=== PATIENT | female | born 1945 | race Caucasian/White ===

== ENCOUNTER 2018-01-12 09:38 | Inpatient (IN) | payer MEDICARE, MEDICAID ==
[~2018-01-12] VITALS: Ht 182.9 cm; Wt 142.7 kg
[2018-01-12] MEDS ORDERED: ALBUTEROL SULF 2.5 MG/0.5ML(0.5%) NEB SOLN NEB ONE (10:00)
[2018-01-12] MEDS ORDERED: IPRATROPIUM BROM 0.5 MG/2.5ML INH SOL NEB ONE (10:00)
[2018-01-12] MEDS ORDERED: methylPREDNISolone SOD SUCC 125 MG/2 ML VL IV ONE (10:00)
[2018-01-12 10:26] LABS: Basophils # (auto) 0 uL; Basophils % (auto) 0.4 % (0.0-2.0); Eosinophils # (auto) 0.2 uL; Eosinophils % (auto) 1.8 % (0.0-7.0); Hematocrit 34.1 % (36.0-46.0); Hemoglobin 10.9 g/dL (12.2-16.2); Lymphocytes # (auto) 2.3 uL; Mean Corpuscular Hemoglobin 28.7 pg (28.0-32.0); Mean Corpuscular Hgb Conc. 32.1 g/dL (32.0-36.0); Mean Corpuscular Volume 89.5 fL (80.0-100.0); Monocytes # (auto) 0.8 uL; Monocytes % (auto) 8.4 % (0.0-12.0); Neutrophils # (auto) 6.7 uL; Neutrophils % (auto) 66.4 % (37.0-80.0); Nucleated Red Blood Cells % 0.1 %; Platelet Count (auto) 286 10^3/uL (140-450); Red Blood Cells 3.81 10^6/uL (4.0-5.20); White Blood Cell 10.1 10^3/uL (4.4-10.8)
[2018-01-12 10:34] LABS: Urine Bacteria NONE SEEN /hpf (None Seen); Urine Blood Negative /uL (Negative); Urine Mucus FEW (None Seen); Urine Specific Gravity 1.022 (1.001-1.035); Urine WBC 2 /hpf (0 - 5)
[2018-01-12 10:48] LABS: Partial Thromboplastin Time 35.9 sec (22.64-33.71); Prothrombin Time 10.9 sec (9.37-12.3)
[2018-01-12] MEDS ORDERED: VANCOMYCIN PER PHARMACY 0 MG IV SCH (11:30)
[2018-01-12] MEDS ORDERED: PIPERACILLIN-TAZOB 3.375GM 50 ML IV ONE (11:30)
[2018-01-12] MEDS ORDERED: PROMETHAZINE HCL 25 MG/ML 1ML IV ONE (12:00)
[2018-01-12] MEDS ORDERED: NALBUPHINE HCL 10 MG/1ml INJECTION IV ONE (12:00)
[2018-01-12] MEDS ORDERED: LACTULOSE 20Gm/30ML SOLN PO PRN ×2 (12:30)
[2018-01-12] MEDS ORDERED: MORPHINE SULFATE 4 MG/ML SYR/VIAL IV PRN ×2 (12:30)
[2018-01-12] MEDS ORDERED: diphenhdrAMINE HCL 50 MG/1 ML VL IV ONE (12:30)
[2018-01-12] MEDS ORDERED: NITROGLYCERIN 0.4 MG SL TAB SL PRN (12:30)
[2018-01-12] MEDS ORDERED: ACETAMINOPHEN 500 MG TAB PO PRN (12:30)
[2018-01-12] MEDS ORDERED: ALBUTEROL SULF 2.5 MG/0.5ML(0.5%) NEB SOLN NEB PRN (12:30)
[2018-01-12] MEDS ORDERED: PROMETHAZINE HCL 25 MG/ML 1ML IV PRN (12:30)
[2018-01-12] MEDS ORDERED: OSELTAMIVIR 75 MG CAP PO ONE (12:30)
[2018-01-12] MEDS: FUROSEMIDE 40 MG/4 ML VIAL IV SCH (12:45)
[2018-01-12] MEDS: NITROGLYCERIN 0.2MG/HR TOPICAL PATCH TD SCH (12:45)
[2018-01-12] MEDS: CARVEDILOL 3.125 MG TAB PO SCH ×2 (12:45→22:00)
[2018-01-12] MEDS: ENALAPRIL MALEATE 10 MG TAB PO SCH (12:45)
[2018-01-12] MEDS: ASPirin 81 mg TAB PO SCH (12:45)
[2018-01-12] MEDS ORDERED: LORazepam 2MG/ML-1ML VIAL IV ONE ×2 (12:45)
[2018-01-12] MEDS ORDERED: METHADONE HCL 10 MG TAB PO ONE (13:00)
[2018-01-12] MEDS: LEVOFLOXACIN 500MG 100 ML IV SCH (13:00)
[2018-01-12] MEDS ORDERED: VANCOMYCIN 1GM/250ML 250 ML IV ONE ×2 (13:00→15:00)
[2018-01-12] MEDS: ENOXAPARIN SOD 40 MG/0.4 ML SYRINGE SC SCH (13:00)
[2018-01-12 13:06] LABS: Alanine Aminotransferase 35 U/L (13-56); Albumin 3.1 g/dL (3.4-5.0); Alkaline Phosphatase 95 U/L (45-117); Anion Gap 11 (5-15); Aspartate Aminotransferase 28 U/L (15-37); BUN/Creatinine Ratio 23.1; Bilirubin, Total 0.3 mg/dL (0.2-1.0); Blood Urea Nitrogen 21 mg/dL (7-18); Calcium 8.5 mg/dL (8.5-10.1); Carbon Dioxide 26 mmol/L (21-32); Chloride 104 mmol/L (98-107); GFR African American 79 mL/min; GFR Non-African American 65 mL/min; Glucose 124 mg/dL (74-106); Potassium 3.6 mmol/L (3.5-5.1); Sodium 141 mmol/L (136-145); Total Protein 7.4 g/dL (6.4-8.2)
[2018-01-12] MEDS: SODIUM CHLOR 0.9% PF (SALINE LOCK) 10ML VIAL IV SCH ×2 (13:09→22:03)
[2018-01-12] MEDS: LORazepam 2MG/ML-1ML VIAL IM PRN (13:41)
[2018-01-12] MEDS: CLINDAMYCIN 600MG IV 50 ML IV SCH ×2 (14:00→22:17)
[2018-01-12] MEDS: methylPREDNISolone SOD SUCC 40 MG/ML VL IV SCH (18:52)
[2018-01-12] MEDS: IPRATROPIUM BROM 0.5 MG/2.5ML INH SOL NEB SCH (19:01)
[2018-01-12] MEDS: ALBUTEROL SULF 2.5 MG/0.5ML(0.5%) NEB SOLN NEB SCH (19:01)
[2018-01-12 21:31] VITALS: BP 162/88
[2018-01-12] MEDS: METHADONE HCL 10 MG TAB PO SCH (22:00)
[2018-01-12] MEDS ORDERED: OSELTAMIVIR 75 MG CAP PO SCH (22:00)
[2018-01-13] MEDS: IPRATROPIUM BROM 0.5 MG/2.5ML INH SOL NEB SCH ×5 (01:30→19:13)
[2018-01-13] MEDS: ALBUTEROL SULF 2.5 MG/0.5ML(0.5%) NEB SOLN NEB SCH ×5 (01:30→19:13)
[2018-01-13] MEDS: methylPREDNISolone SOD SUCC 40 MG/ML VL IV SCH ×5 (02:38→23:48)
[2018-01-13] MEDS: SODIUM CHLOR 0.9% PF (SALINE LOCK) 10ML VIAL IV SCH ×3 (05:36→21:39)
[2018-01-13] MEDS: CLINDAMYCIN 600MG IV 50 ML IV SCH ×3 (06:00→21:47)
[2018-01-13 06:58] LABS: Cholesterol 174 mg/dL (< 200); HDL Cholesterol 42 mg/dL (40-59); LDL Cholesterol 115 mg/dL (< 100); Triglycerides 123 mg/dL (< 150)
[2018-01-13] MEDS: CARVEDILOL 3.125 MG TAB PO SCH ×2 (11:00→21:40)
[2018-01-13] MEDS: FUROSEMIDE 40 MG/4 ML VIAL IV SCH (11:00)
[2018-01-13] MEDS: METHADONE HCL 10 MG TAB PO SCH ×2 (11:01→21:39)
[2018-01-13] MEDS: POTASSIUM CHL 20 Meq TABLET PO SCH (11:01)
[2018-01-13] MEDS: ASPirin 81 mg TAB PO SCH (11:01)
[2018-01-13] MEDS: PANTOPRAZOLE 40 MG TAB PO SCH (11:01)
[2018-01-13] MEDS: LEVOFLOXACIN 500MG 100 ML IV SCH (11:01)
[2018-01-13] MEDS: ENALAPRIL MALEATE 10 MG TAB PO SCH (11:02)
[2018-01-13] MEDS: ENOXAPARIN SOD 40 MG/0.4 ML SYRINGE SC SCH (11:02)
[2018-01-13] MEDS: NITROGLYCERIN 0.2MG/HR TOPICAL PATCH TD SCH (11:02)
[2018-01-13] MEDS ORDERED: METH10T PO (18:45)
[2018-01-13 22:18] VITALS: BP 153/61
[2018-01-13] MEDS: LORazepam 0.5 MG TAB PO PRN (22:51)
[2018-01-13] MEDS: ENALAPRILAT 1.25 MG/ML-1ML VIAL IV PRN (23:49)
[2018-01-14] MEDS: TEMAZEPAM 15 MG CAP PO PRN ×2 (01:34→22:26)
[2018-01-14 05:24] VITALS: BP 173/71
[2018-01-14] MEDS: SODIUM CHLOR 0.9% PF (SALINE LOCK) 10ML VIAL IV SCH ×3 (05:40→21:27)
[2018-01-14] MEDS: methylPREDNISolone SOD SUCC 40 MG/ML VL IV SCH ×3 (05:40→17:59)
[2018-01-14] MEDS: CLINDAMYCIN 600MG IV 50 ML IV SCH ×3 (05:41→21:27)
[2018-01-14] MEDS: ENALAPRILAT 1.25 MG/ML-1ML VIAL IV PRN (05:41)
[2018-01-14] MEDS: ALBUTEROL SULF 2.5 MG/0.5ML(0.5%) NEB SOLN NEB SCH ×3 (07:36→19:05)
[2018-01-14] MEDS: IPRATROPIUM BROM 0.5 MG/2.5ML INH SOL NEB SCH ×3 (07:36→19:06)
[2018-01-14 08:27] VITALS: BP 158/87
[2018-01-14 09:00] VITALS: BP 157/70
[2018-01-14] MEDS: LEVOFLOXACIN 500MG 100 ML IV SCH (09:14)
[2018-01-14] MEDS: POTASSIUM CHL 20 Meq TABLET PO SCH (09:15)
[2018-01-14] MEDS: ASPirin 81 mg TAB PO SCH (09:15)
[2018-01-14] MEDS: PANTOPRAZOLE 40 MG TAB PO SCH (09:15)
[2018-01-14] MEDS: METHADONE HCL 10 MG TAB PO SCH ×2 (09:15→21:29)
[2018-01-14] MEDS: ENOXAPARIN SOD 40 MG/0.4 ML SYRINGE SC SCH (09:15)
[2018-01-14] MEDS: FUROSEMIDE 40 MG/4 ML VIAL IV SCH (09:16)
[2018-01-14] MEDS: NITROGLYCERIN 0.2MG/HR TOPICAL PATCH TD SCH (09:17)
[2018-01-14] MEDS: CARVEDILOL 3.125 MG TAB PO SCH ×2 (11:13→21:28)
[2018-01-14] MEDS: ENALAPRIL MALEATE 10 MG TAB PO SCH (11:14)
[2018-01-14 13:00] VITALS: BP 130/57
[2018-01-14 17:00] VITALS: BP 146/61
[2018-01-14 22:14] VITALS: BP 153/75
[2018-01-14] MEDS: LORazepam 0.5 MG TAB PO PRN (22:24)
[2018-01-14] MEDS: LORazepam 2MG/ML-1ML VIAL IM PRN (23:55)
[2018-01-15] VITALS (7 sets, daily range): BP systolic 131–168; BP diastolic 69–85
[2018-01-15] MEDS: methylPREDNISolone SOD SUCC 40 MG/ML VL IV SCH ×4 (00:02→18:16)
[2018-01-15] MEDS: CLINDAMYCIN 600MG IV 50 ML IV SCH (05:53)
[2018-01-15] MEDS: SODIUM CHLOR 0.9% PF (SALINE LOCK) 10ML VIAL IV SCH ×3 (05:54→21:31)
[2018-01-15] MEDS: IPRATROPIUM BROM 0.5 MG/2.5ML INH SOL NEB SCH ×4 (06:39→20:25)
[2018-01-15] MEDS: ALBUTEROL SULF 2.5 MG/0.5ML(0.5%) NEB SOLN NEB SCH ×4 (06:39→20:25)
[2018-01-15] MEDS: POTASSIUM CHL 20 Meq TABLET PO SCH (09:59)
[2018-01-15] MEDS: NITROGLYCERIN 0.2MG/HR TOPICAL PATCH TD SCH (10:00)
[2018-01-15] MEDS: FUROSEMIDE 40 MG/4 ML VIAL IV SCH (10:00)
[2018-01-15] MEDS: ENOXAPARIN SOD 40 MG/0.4 ML SYRINGE SC SCH (10:00)
[2018-01-15] MEDS: ASPirin 81 mg TAB PO SCH (10:00)
[2018-01-15] MEDS: PANTOPRAZOLE 40 MG TAB PO SCH (10:01)
[2018-01-15] MEDS: ENALAPRIL MALEATE 10 MG TAB PO SCH (10:01)
[2018-01-15] MEDS: METHADONE HCL 10 MG TAB PO SCH ×2 (10:01→21:31)
[2018-01-15] MEDS: CARVEDILOL 3.125 MG TAB PO SCH ×2 (10:04→21:31)
[2018-01-15] MEDS: LEVOFLOXACIN 500MG 100 ML IV SCH (10:14)
[2018-01-15] MEDS: HYDROcodone-ACET 5/325MG TAB PO PRN (20:44)
[2018-01-15] MEDS: TEMAZEPAM 15 MG CAP PO PRN (21:32)
[2018-01-15] MEDS: LORazepam 2MG/ML-1ML VIAL IM PRN (21:32)
[2018-01-16] MEDS: methylPREDNISolone SOD SUCC 40 MG/ML VL IV SCH ×3 (00:24→22:05)
[2018-01-16] MEDS: IPRATROPIUM BROM 0.5 MG/2.5ML INH SOL NEB SCH ×4 (01:22→18:58)
[2018-01-16] MEDS: ALBUTEROL SULF 2.5 MG/0.5ML(0.5%) NEB SOLN NEB SCH ×4 (01:22→18:58)
[2018-01-16 05:15] VITALS: BP 166/74
[2018-01-16] MEDS: SODIUM CHLOR 0.9% PF (SALINE LOCK) 10ML VIAL IV SCH ×3 (05:35→22:04)
[2018-01-16] MEDS: ENALAPRILAT 1.25 MG/ML-1ML VIAL IV PRN (05:36)
[2018-01-16 06:33] LABS: Basophils # (auto) 0.1 uL; Basophils % (auto) 0.7 % (0.0-2.0); Eosinophils # (auto) 0 uL; Hematocrit 34.8 % (36.0-46.0); Hemoglobin 11.6 g/dL (12.2-16.2); Lymphocytes # (auto) 0.9 uL; Lymphocytes % (auto) 10.7 % (10.0-50.0); Mean Corpuscular Hemoglobin 29.1 pg (28.0-32.0); Mean Corpuscular Hgb Conc. 33.4 g/dL (32.0-36.0); Mean Corpuscular Volume 87.2 fL (80.0-100.0); Monocytes # (auto) 0.3 uL; Monocytes % (auto) 3.4 % (0.0-12.0); Neutrophils # (auto) 7.2 uL; Neutrophils % (auto) 85.2 % (37.0-80.0); Nucleated Red Blood Cells % 0.1 %; Platelet Count (auto) 282 10^3/uL (140-450); Red Cell Distribution Width 14.3 % (11.8-14.3); White Blood Cell 8.4 10^3/uL (4.4-10.8)
[2018-01-16 06:41] LABS: BUN/Creatinine Ratio 41.1; Calcium 8.5 mg/dL (8.5-10.1); Potassium 4.5 mmol/L (3.5-5.1)
[2018-01-16 09:35] VITALS: BP 167/80
[2018-01-16] MEDS: PANTOPRAZOLE 40 MG TAB PO SCH (10:31)
[2018-01-16] MEDS: CARVEDILOL 3.125 MG TAB PO SCH ×2 (10:32→22:05)
[2018-01-16] MEDS: ASPirin 81 mg TAB PO SCH (10:32)
[2018-01-16] MEDS: LEVOFLOXACIN 500MG 100 ML IV SCH (10:33)
[2018-01-16] MEDS: ENALAPRIL MALEATE 10 MG TAB PO SCH (10:33)
[2018-01-16] MEDS: POTASSIUM CHL 20 Meq TABLET PO SCH (10:34)
[2018-01-16] MEDS: ENOXAPARIN SOD 40 MG/0.4 ML SYRINGE SC SCH (10:37)
[2018-01-16] MEDS: NITROGLYCERIN 0.2MG/HR TOPICAL PATCH TD SCH (10:38)
[2018-01-16] MEDS: METHADONE HCL 10 MG TAB PO SCH ×2 (10:41→22:05)
[2018-01-16] MEDS: FUROSEMIDE 40 MG/4 ML VIAL IV SCH (10:41)
[2018-01-16 13:00] VITALS: BP 147/78
[2018-01-16] MEDS: LORazepam 2MG/ML-1ML VIAL IM PRN ×2 (20:34→22:05)
[2018-01-16 22:00] VITALS: BP 150/59
[2018-01-16] MEDS: TEMAZEPAM 15 MG CAP PO PRN (22:05)
[2018-01-17] MEDS: ALBUTEROL SULF 2.5 MG/0.5ML(0.5%) NEB SOLN NEB SCH ×4 (00:37→19:08)
[2018-01-17] MEDS: IPRATROPIUM BROM 0.5 MG/2.5ML INH SOL NEB SCH ×4 (00:37→19:08)
[2018-01-17] MEDS: LORazepam 2MG/ML-1ML VIAL IM PRN ×2 (03:31→23:42)
[2018-01-17 05:00] VITALS: BP 102/57
[2018-01-17 06:36] LABS: Basophils # (auto) 0 uL; Basophils % (auto) 0.2 % (0.0-2.0); Eosinophils # (auto) 0 uL; Eosinophils % (auto) 0.1 % (0.0-7.0); Hematocrit 36.2 % (36.0-46.0); Hemoglobin 11.9 g/dL (12.2-16.2); Lymphocytes # (auto) 0.9 uL; Lymphocytes % (auto) 8.1 % (10.0-50.0); Mean Corpuscular Hgb Conc. 32.8 g/dL (32.0-36.0); Mean Corpuscular Volume 88.3 fL (80.0-100.0); Monocytes # (auto) 0.7 uL; Monocytes % (auto) 6.3 % (0.0-12.0); Neutrophils # (auto) 9.4 uL; Neutrophils % (auto) 85.3 % (37.0-80.0); Platelet Count (auto) 306 10^3/uL (140-450); Red Cell Distribution Width 14.4 % (11.8-14.3)
[2018-01-17 07:02] LABS: BUN/Creatinine Ratio 40.2; Calcium 8.6 mg/dL (8.5-10.1); Potassium 4.1 mmol/L (3.5-5.1)
[2018-01-17] MEDS: SODIUM CHLOR 0.9% PF (SALINE LOCK) 10ML VIAL IV SCH ×3 (07:02→21:27)
[2018-01-17 09:00] VITALS: BP 136/76
[2018-01-17] MEDS: ENOXAPARIN SOD 40 MG/0.4 ML SYRINGE SC SCH (10:34)
[2018-01-17] MEDS: methylPREDNISolone SOD SUCC 40 MG/ML VL IV SCH ×2 (10:34→21:27)
[2018-01-17] MEDS: LEVOFLOXACIN 500 MG TAB PO SCH (10:35)
[2018-01-17] MEDS: ENALAPRIL MALEATE 10 MG TAB PO SCH (10:35)
[2018-01-17] MEDS: PANTOPRAZOLE 40 MG TAB PO SCH (10:35)
[2018-01-17] MEDS: POTASSIUM CHL 20 Meq TABLET PO SCH (10:35)
[2018-01-17] MEDS: ASPirin 81 mg TAB PO SCH (10:36)
[2018-01-17] MEDS: METHADONE HCL 10 MG TAB PO SCH ×2 (10:36→21:29)
[2018-01-17] MEDS: CARVEDILOL 3.125 MG TAB PO SCH ×2 (10:36→21:28)
[2018-01-17] MEDS: NITROGLYCERIN 0.2MG/HR TOPICAL PATCH TD SCH (10:37)
[2018-01-17 13:00] VITALS: BP 164/80
[2018-01-17 17:00] VITALS: BP 148/81
[2018-01-17] MEDS: BOOST PLUS 8 ounce PO SCH (17:51)
[2018-01-17] MEDS: TEMAZEPAM 15 MG CAP PO PRN (21:28)
[2018-01-17 22:00] VITALS: BP 159/69
[2018-01-18] MEDS: IPRATROPIUM BROM 0.5 MG/2.5ML INH SOL NEB SCH ×4 (00:21→19:00)
[2018-01-18] MEDS: ALBUTEROL SULF 2.5 MG/0.5ML(0.5%) NEB SOLN NEB SCH ×4 (00:21→19:00)
[2018-01-18] MEDS: ENALAPRILAT 1.25 MG/ML-1ML VIAL IV PRN (04:54)
[2018-01-18 05:16] VITALS: BP 174/86
[2018-01-18 05:47] LABS: Basophils # (auto) 0 uL; Basophils % (auto) 0.4 % (0.0-2.0); Eosinophils # (auto) 0 uL; Hematocrit 36.8 % (36.0-46.0); Hemoglobin 12.1 g/dL (12.2-16.2); Lymphocytes # (auto) 0.8 uL; Lymphocytes % (auto) 8.2 % (10.0-50.0); Mean Corpuscular Hemoglobin 28.9 pg (28.0-32.0); Mean Corpuscular Hgb Conc. 32.8 g/dL (32.0-36.0); Mean Corpuscular Volume 88.1 fL (80.0-100.0); Monocytes # (auto) 0.4 uL; Monocytes % (auto) 3.6 % (0.0-12.0); Neutrophils # (auto) 8.9 uL; Neutrophils % (auto) 87.8 % (37.0-80.0); Nucleated Red Blood Cells % 0.1 %; Platelet Count (auto) 263 10^3/uL (140-450); Red Blood Cells 4.18 10^6/uL (4.0-5.20); Red Cell Distribution Width 14.2 % (11.8-14.3); White Blood Cell 10.2 10^3/uL (4.4-10.8)
[2018-01-18] MEDS: SODIUM CHLOR 0.9% PF (SALINE LOCK) 10ML VIAL IV SCH ×3 (06:00→21:55)
[2018-01-18 06:36] LABS: BUN/Creatinine Ratio 44.6; Calcium 8.4 mg/dL (8.5-10.1); Potassium 4.6 mmol/L (3.5-5.1)
[2018-01-18 08:00] VITALS: BP 155/71
[2018-01-18] MEDS: BOOST PLUS 8 ounce PO SCH ×3 (10:09→18:00)
[2018-01-18] MEDS: LORazepam 0.5 MG TAB PO PRN (10:10)
[2018-01-18] MEDS: PANTOPRAZOLE 40 MG TAB PO SCH (10:10)
[2018-01-18] MEDS: CARVEDILOL 3.125 MG TAB PO SCH ×2 (10:10→21:56)
[2018-01-18] MEDS: methylPREDNISolone SOD SUCC 40 MG/ML VL IV SCH ×2 (10:10→22:22)
[2018-01-18] MEDS: LEVOFLOXACIN 500 MG TAB PO SCH (10:11)
[2018-01-18] MEDS: POTASSIUM CHL 20 Meq TABLET PO SCH (10:11)
[2018-01-18] MEDS: METHADONE HCL 10 MG TAB PO SCH ×2 (10:11→21:56)
[2018-01-18] MEDS: ENOXAPARIN SOD 40 MG/0.4 ML SYRINGE SC SCH (10:11)
[2018-01-18] MEDS: NITROGLYCERIN 0.2MG/HR TOPICAL PATCH TD SCH (10:11)
[2018-01-18] MEDS: ASPirin 81 mg TAB PO SCH (10:12)
[2018-01-18] MEDS: ENALAPRIL MALEATE 10 MG TAB PO SCH (10:12)
[2018-01-18 12:47] VITALS: BP 141/73
[2018-01-18 13:00] VITALS: BP 129/76
[2018-01-18 22:00] VITALS: BP 139/65
[2018-01-18] MEDS: BUDESONIDE (INHALATION) 0.5 MG/2 ML NEB NEB SCH (22:00)
[2018-01-18] MEDS: TEMAZEPAM 15 MG CAP PO PRN (22:06)
[2018-01-18] MEDS: LORazepam 2MG/ML-1ML VIAL IM PRN (22:06)
[2018-01-19] MEDS ORDERED: methylPREDNISolone SOD SUCC 125 MG/2 ML VL IV SCH
[2018-01-19 05:00] VITALS: BP 149/73
[2018-01-19] MEDS: SODIUM CHLOR 0.9% PF (SALINE LOCK) 10ML VIAL IV SCH ×3 (06:03→22:27)
[2018-01-19] MEDS: ALBUTEROL SULF 2.5 MG/0.5ML(0.5%) NEB SOLN NEB SCH ×4 (06:16→18:05)
[2018-01-19] MEDS: IPRATROPIUM BROM 0.5 MG/2.5ML INH SOL NEB SCH ×4 (06:16→18:05)
[2018-01-19] MEDS: methylPREDNISolone SOD SUCC 125 MG/2 ML VL IV SCH ×3 (06:37→17:57)
[2018-01-19 07:20] LABS: BUN/Creatinine Ratio 45.6; Calcium 8.4 mg/dL (8.5-10.1); Potassium 5.1 mmol/L (3.5-5.1)
[2018-01-19 07:31] LABS: Basophils # (auto) 0 uL; Basophils % (auto) 0.2 % (0.0-2.0); Eosinophils # (auto) 0 uL; Eosinophils % (auto) 0.1 % (0.0-7.0); Hematocrit 35.5 % (36.0-46.0); Hemoglobin 11.6 g/dL (12.2-16.2); Lymphocytes # (auto) 0.9 uL; Lymphocytes % (auto) 7.6 % (10.0-50.0); Mean Corpuscular Hgb Conc. 32.8 g/dL (32.0-36.0); Mean Corpuscular Volume 88.4 fL (80.0-100.0); Monocytes # (auto) 0.3 uL; Monocytes % (auto) 2.5 % (0.0-12.0); Neutrophils # (auto) 10.1 uL; Neutrophils % (auto) 89.6 % (37.0-80.0); Platelet Count (auto) 261 10^3/uL (140-450); Red Blood Cells 4.02 10^6/uL (4.0-5.20); Red Cell Distribution Width 14.1 % (11.8-14.3); White Blood Cell 11.3 10^3/uL (4.4-10.8)
[2018-01-19] MEDS: BOOST PLUS 8 ounce PO SCH ×3 (08:56→17:57)
[2018-01-19 09:00] VITALS: BP 130/60
[2018-01-19] MEDS: ENOXAPARIN SOD 40 MG/0.4 ML SYRINGE SC SCH (10:19)
[2018-01-19] MEDS: METHADONE HCL 10 MG TAB PO SCH ×2 (10:20→22:27)
[2018-01-19] MEDS: NITROGLYCERIN 0.2MG/HR TOPICAL PATCH TD SCH (10:20)
[2018-01-19] MEDS: ASPirin 81 mg TAB PO SCH (10:20)
[2018-01-19] MEDS: LEVOFLOXACIN 500 MG TAB PO SCH (10:21)
[2018-01-19] MEDS: ENALAPRIL MALEATE 10 MG TAB PO SCH (10:21)
[2018-01-19] MEDS: POTASSIUM CHL 20 Meq TABLET PO SCH (10:21)
[2018-01-19] MEDS: PANTOPRAZOLE 40 MG TAB PO SCH (10:21)
[2018-01-19] MEDS: CARVEDILOL 3.125 MG TAB PO SCH ×2 (10:22→22:27)
[2018-01-19] MEDS: BUDESONIDE (INHALATION) 0.5 MG/2 ML NEB NEB SCH ×2 (10:27→22:26)
[2018-01-19 13:00] VITALS: BP 145/57
[2018-01-19] MEDS ORDERED: DEXTROSE (50%) 50ML SYRG IV PRN (16:30)
[2018-01-19] MEDS ORDERED: InsuLIN REG 1unit/0.01ml Soln (100units/ml) SC SCH (17:00)
[2018-01-19 18:00] VITALS: BP 130/67
[2018-01-19] MEDS ORDERED: ACCU-CHEK COMFORT CURVE STRIP VI SCH (18:00)
[2018-01-19 22:00] VITALS: BP 156/76
[2018-01-19] MEDS: ACCU-CHEK COMFORT CURVE STRIP VI SCH (22:28)
[2018-01-19] MEDS: InsuLIN REG 1unit/0.01ml Soln (100units/ml) SC SCH (22:33)
[2018-01-19] MEDS: LORazepam 2MG/ML-1ML VIAL IM PRN (22:42)
[2018-01-20] MEDS: methylPREDNISolone SOD SUCC 125 MG/2 ML VL IV SCH ×5 (00:06→23:41)
[2018-01-20] MEDS: SODIUM CHLOR 0.9% PF (SALINE LOCK) 10ML VIAL IV SCH ×3 (06:12→21:15)
[2018-01-20] MEDS: ACCU-CHEK COMFORT CURVE STRIP VI SCH ×4 (06:13→21:15)
[2018-01-20 06:16] VITALS: BP 143/65
[2018-01-20] MEDS: InsuLIN REG 1unit/0.01ml Soln (100units/ml) SC SCH ×3 (06:29→17:05)
[2018-01-20] MEDS: ALBUTEROL SULF 2.5 MG/0.5ML(0.5%) NEB SOLN NEB SCH ×4 (06:31→18:58)
[2018-01-20] MEDS: IPRATROPIUM BROM 0.5 MG/2.5ML INH SOL NEB SCH ×4 (06:31→18:58)
[2018-01-20 06:44] LABS: Basophils # (auto) 0 uL; Basophils % (auto) 0.1 % (0.0-2.0); Eosinophils # (auto) 0 uL; Hematocrit 35.4 % (36.0-46.0); Hemoglobin 11.4 g/dL (12.2-16.2); Lymphocytes # (auto) 0.8 uL; Lymphocytes % (auto) 5.8 % (10.0-50.0); Mean Corpuscular Hemoglobin 28.4 pg (28.0-32.0); Mean Corpuscular Hgb Conc. 32.3 g/dL (32.0-36.0); Mean Corpuscular Volume 87.9 fL (80.0-100.0); Monocytes # (auto) 0.2 uL; Monocytes % (auto) 1.6 % (0.0-12.0); Neutrophils # (auto) 12.8 uL; Neutrophils % (auto) 92.5 % (37.0-80.0); Platelet Count (auto) 271 10^3/uL (140-450); Red Blood Cells 4.02 10^6/uL (4.0-5.20); Red Cell Distribution Width 14.3 % (11.8-14.3); White Blood Cell 13.9 10^3/uL (4.4-10.8)
[2018-01-20 07:08] LABS: BUN/Creatinine Ratio 40.4; Calcium 8.4 mg/dL (8.5-10.1); Potassium 4.9 mmol/L (3.5-5.1)
[2018-01-20 09:00] VITALS: BP 139/77
[2018-01-20] MEDS: BOOST PLUS 8 ounce PO SCH ×3 (09:23→17:27)
[2018-01-20] MEDS: ENOXAPARIN SOD 40 MG/0.4 ML SYRINGE SC SCH (09:30)
[2018-01-20] MEDS: METHADONE HCL 10 MG TAB PO SCH ×2 (09:37→21:15)
[2018-01-20] MEDS: ENALAPRIL MALEATE 10 MG TAB PO SCH (09:37)
[2018-01-20] MEDS: POTASSIUM CHL 20 Meq TABLET PO SCH (09:37)
[2018-01-20] MEDS: ASPirin 81 mg TAB PO SCH (09:38)
[2018-01-20] MEDS: PANTOPRAZOLE 40 MG TAB PO SCH (09:38)
[2018-01-20] MEDS: LEVOFLOXACIN 500 MG TAB PO SCH (09:38)
[2018-01-20] MEDS: CARVEDILOL 3.125 MG TAB PO SCH ×2 (09:39→21:12)
[2018-01-20] MEDS: NITROGLYCERIN 0.2MG/HR TOPICAL PATCH TD SCH (09:41)
[2018-01-20] MEDS: BUDESONIDE (INHALATION) 0.5 MG/2 ML NEB NEB SCH ×2 (10:33→18:58)
[2018-01-20] MEDS ORDERED: DEXTROSE (50%) 50ML SYRG IV PRN (12:15)
[2018-01-20 13:00] VITALS: BP 146/72
[2018-01-20 17:00] VITALS: BP 162/76
[2018-01-20] MEDS ORDERED: ACCU-CHEK COMFORT CURVE STRIP VI SCH (17:00)
[2018-01-20] MEDS: INSULIN 70/30 1unit/0.01ml Susp (100units/ml) SC SCH (17:27)
[2018-01-20] MEDS: TEMAZEPAM 15 MG CAP PO PRN (21:34)
[2018-01-20 22:00] VITALS: BP 130/59
[2018-01-20] MEDS ORDERED: InsuLIN REG 1unit/0.01ml Soln (100units/ml) SC SCH ×2 (22:00)
[2018-01-21 05:00] VITALS: BP 137/56
[2018-01-21] MEDS: SODIUM CHLOR 0.9% PF (SALINE LOCK) 10ML VIAL IV SCH ×3 (06:09→21:37)
[2018-01-21] MEDS: methylPREDNISolone SOD SUCC 125 MG/2 ML VL IV SCH ×3 (06:10→17:07)
[2018-01-21] MEDS: ACCU-CHEK COMFORT CURVE STRIP VI SCH ×4 (06:10→21:38)
[2018-01-21] MEDS: InsuLIN REG 1unit/0.01ml Soln (100units/ml) SC SCH ×4 (06:16→21:45)
[2018-01-21] MEDS: IPRATROPIUM BROM 0.5 MG/2.5ML INH SOL NEB SCH ×4 (06:46→19:03)
[2018-01-21] MEDS: ALBUTEROL SULF 2.5 MG/0.5ML(0.5%) NEB SOLN NEB SCH ×4 (06:46→19:03)
[2018-01-21] MEDS: BOOST PLUS 8 ounce PO SCH ×3 (08:30→17:08)
[2018-01-21] MEDS: INSULIN 70/30 1unit/0.01ml Susp (100units/ml) SC SCH ×2 (08:30→17:08)
[2018-01-21 09:00] VITALS: BP 137/114
[2018-01-21] MEDS: METHADONE HCL 10 MG TAB PO SCH ×2 (10:00→21:38)
[2018-01-21] MEDS: BUDESONIDE (INHALATION) 0.5 MG/2 ML NEB NEB SCH ×2 (10:15→19:04)
[2018-01-21] MEDS: ENOXAPARIN SOD 40 MG/0.4 ML SYRINGE SC SCH (10:19)
[2018-01-21] MEDS: NITROGLYCERIN 0.2MG/HR TOPICAL PATCH TD SCH (10:21)
[2018-01-21] MEDS: LEVOFLOXACIN 500 MG TAB PO SCH (10:21)
[2018-01-21] MEDS: CARVEDILOL 3.125 MG TAB PO SCH ×2 (10:22→21:38)
[2018-01-21] MEDS: ASPirin 81 mg TAB PO SCH (10:24)
[2018-01-21] MEDS: PANTOPRAZOLE 40 MG TAB PO SCH (10:24)
[2018-01-21] MEDS: POTASSIUM CHL 20 Meq TABLET PO SCH (10:25)
[2018-01-21] MEDS: ENALAPRIL MALEATE 10 MG TAB PO SCH (10:25)
[2018-01-21 13:00] VITALS: BP 125/48
[2018-01-21] MEDS ORDERED: DEXTROSE (50%) 50ML SYRG IV PRN (13:00)
[2018-01-21] MEDS ORDERED: guaiFENesin-CODEINE LIQUID 5 ML UD PO PRN (13:30)
[2018-01-21 17:11] VITALS: BP 137/71
[2018-01-21 19:22] VITALS: BP 137/71
[2018-01-21 22:32] VITALS: BP 132/73
[2018-01-22] MEDS: methylPREDNISolone SOD SUCC 125 MG/2 ML VL IV SCH ×2 (00:33→06:13)
[2018-01-22 05:09] VITALS: BP 127/71
[2018-01-22] MEDS: ACCU-CHEK COMFORT CURVE STRIP VI SCH ×4 (06:13→22:09)
[2018-01-22] MEDS: SODIUM CHLOR 0.9% PF (SALINE LOCK) 10ML VIAL IV SCH ×3 (06:13→22:08)
[2018-01-22] MEDS: InsuLIN REG 1unit/0.01ml Soln (100units/ml) SC SCH ×4 (06:14→22:10)
[2018-01-22] MEDS: IPRATROPIUM BROM 0.5 MG/2.5ML INH SOL NEB SCH ×4 (07:04→19:07)
[2018-01-22] MEDS: ALBUTEROL SULF 2.5 MG/0.5ML(0.5%) NEB SOLN NEB SCH ×4 (07:04→19:08)
[2018-01-22] MEDS: BUDESONIDE (INHALATION) 0.5 MG/2 ML NEB NEB SCH ×2 (07:05→19:07)
[2018-01-22 08:00] VITALS: BP 124/69
[2018-01-22 08:09] LABS: Basophils # (auto) 0 uL; Basophils % (auto) 0.1 % (0.0-2.0); Eosinophils # (auto) 0 uL; Hematocrit 39.4 % (36.0-46.0); Hemoglobin 12.5 g/dL (12.2-16.2); Lymphocytes # (auto) 0.8 uL; Lymphocytes % (auto) 5.5 % (10.0-50.0); Mean Corpuscular Hemoglobin 27.9 pg (28.0-32.0); Mean Corpuscular Hgb Conc. 31.8 g/dL (32.0-36.0); Mean Corpuscular Volume 87.8 fL (80.0-100.0); Monocytes # (auto) 0.4 uL; Monocytes % (auto) 2.7 % (0.0-12.0); Neutrophils # (auto) 13.8 uL; Neutrophils % (auto) 91.7 % (37.0-80.0); Platelet Count (auto) 302 10^3/uL (140-450); Red Blood Cells 4.49 10^6/uL (4.0-5.20); Red Cell Distribution Width 14.4 % (11.8-14.3)
[2018-01-22] MEDS: BOOST PLUS 8 ounce PO SCH ×3 (08:18→18:01)
[2018-01-22] MEDS: INSULIN 70/30 1unit/0.01ml Susp (100units/ml) SC SCH ×2 (08:18→17:23)
[2018-01-22 08:32] LABS: BUN/Creatinine Ratio 47.5; Calcium 8.3 mg/dL (8.5-10.1); Potassium 5.1 mmol/L (3.5-5.1)
[2018-01-22] MEDS: AZITHROMYCIN 500MG/ 250ML 250 ML IV SCH (09:51)
[2018-01-22] MEDS: PANTOPRAZOLE 40 MG TAB PO SCH (09:51)
[2018-01-22] MEDS: ENOXAPARIN SOD 40 MG/0.4 ML SYRINGE SC SCH (09:52)
[2018-01-22] MEDS: ENALAPRIL MALEATE 10 MG TAB PO SCH (09:52)
[2018-01-22] MEDS: CARVEDILOL 3.125 MG TAB PO SCH ×2 (09:53→22:09)
[2018-01-22] MEDS: NITROGLYCERIN 0.2MG/HR TOPICAL PATCH TD SCH (09:53)
[2018-01-22] MEDS: ASPirin 81 mg TAB PO SCH (09:53)
[2018-01-22] MEDS: LEVOFLOXACIN 500 MG TAB PO SCH (09:53)
[2018-01-22] MEDS: POTASSIUM CHL 20 Meq TABLET PO SCH (09:53)
[2018-01-22] MEDS: METHADONE HCL 10 MG TAB PO SCH ×2 (10:00→22:09)
[2018-01-22] MEDS: predniSONE 20 MG TAB PO SCH (11:56)
[2018-01-22 12:00] VITALS: BP 108/64
[2018-01-22] MEDS ORDERED: METOPROLOL TARTRATE 1MG/1ML-5ML VIAL IV ONE (15:30)
[2018-01-22] MEDS ORDERED: ENALAPRILAT 1.25 MG/ML-1ML VIAL IV PRN (16:45)
[2018-01-22] MEDS: LORazepam 0.5 MG TAB PO PRN (16:58)
[2018-01-22 17:00] VITALS: BP 122/88
[2018-01-22 22:00] VITALS: BP 124/59
[2018-01-22] MEDS: APIXABAN 5 MG TAB PO SCH (22:09)
[2018-01-23] MEDS: TEMAZEPAM 15 MG CAP PO PRN ×2 (00:38→22:37)
[2018-01-23 05:00] VITALS: BP 126/70
[2018-01-23] MEDS: ACCU-CHEK COMFORT CURVE STRIP VI SCH ×4 (06:06→22:09)
[2018-01-23] MEDS: InsuLIN REG 1unit/0.01ml Soln (100units/ml) SC SCH ×4 (06:06→22:00)
[2018-01-23] MEDS: SODIUM CHLOR 0.9% PF (SALINE LOCK) 10ML VIAL IV SCH ×3 (06:06→22:08)
[2018-01-23] MEDS: ALBUTEROL SULF 2.5 MG/0.5ML(0.5%) NEB SOLN NEB SCH ×4 (07:46→18:57)
[2018-01-23] MEDS: IPRATROPIUM BROM 0.5 MG/2.5ML INH SOL NEB SCH ×4 (07:46→18:57)
[2018-01-23] MEDS: BOOST PLUS 8 ounce PO SCH ×3 (08:35→17:57)
[2018-01-23] MEDS: INSULIN 70/30 1unit/0.01ml Susp (100units/ml) SC SCH ×2 (08:35→17:58)
[2018-01-23 08:38] VITALS: BP 124/84
[2018-01-23] MEDS: BUDESONIDE (INHALATION) 0.5 MG/2 ML NEB NEB SCH ×2 (09:25→18:57)
[2018-01-23] MEDS: ENOXAPARIN SOD 40 MG/0.4 ML SYRINGE SC SCH (09:31)
[2018-01-23] MEDS: AZITHROMYCIN 500MG/ 250ML 250 ML IV SCH (09:31)
[2018-01-23] MEDS: predniSONE 20 MG TAB PO SCH (09:32)
[2018-01-23] MEDS: POTASSIUM CHL 20 Meq TABLET PO SCH (09:32)
[2018-01-23] MEDS: ASPirin 81 mg TAB PO SCH (09:32)
[2018-01-23] MEDS: PANTOPRAZOLE 40 MG TAB PO SCH (09:32)
[2018-01-23] MEDS: METHADONE HCL 10 MG TAB PO SCH ×2 (09:32→22:09)
[2018-01-23] MEDS: APIXABAN 5 MG TAB PO SCH ×2 (09:32→22:09)
[2018-01-23] MEDS: ENALAPRIL MALEATE 10 MG TAB PO SCH (09:33)
[2018-01-23] MEDS: CARVEDILOL 3.125 MG TAB PO SCH ×2 (09:33→22:08)
[2018-01-23] MEDS: NITROGLYCERIN 0.2MG/HR TOPICAL PATCH TD SCH (09:34)
[2018-01-23 13:00] VITALS: BP 105/66
[2018-01-23 16:56] VITALS: BP 114/69
[2018-01-23] MEDS ORDERED: DIGOXIN 0.25 MG TAB PO ONE (18:30)
[2018-01-23 22:00] VITALS: BP 120/55
[2018-01-24 06:16] VITALS: BP 105/69
[2018-01-24] MEDS: SODIUM CHLOR 0.9% PF (SALINE LOCK) 10ML VIAL IV SCH ×3 (06:27→22:00)
[2018-01-24] MEDS: ACCU-CHEK COMFORT CURVE STRIP VI SCH ×4 (06:27→22:31)
[2018-01-24] MEDS: InsuLIN REG 1unit/0.01ml Soln (100units/ml) SC SCH ×4 (06:27→22:36)
[2018-01-24] MEDS: ALBUTEROL SULF 2.5 MG/0.5ML(0.5%) NEB SOLN NEB SCH ×4 (06:44→19:46)
[2018-01-24] MEDS: IPRATROPIUM BROM 0.5 MG/2.5ML INH SOL NEB SCH ×4 (06:44→19:46)
[2018-01-24] MEDS: BUDESONIDE (INHALATION) 0.5 MG/2 ML NEB NEB SCH ×2 (06:44→19:46)
[2018-01-24 07:14] LABS: Hematocrit 36.3 % (36.0-46.0); Hemoglobin 11.8 g/dL (12.2-16.2); Mean Corpuscular Hemoglobin 28.7 pg (28.0-32.0); Mean Corpuscular Hgb Conc. 32.4 g/dL (32.0-36.0); Mean Corpuscular Volume 88.7 fL (80.0-100.0); Platelet Count (auto) 248 10^3/uL (140-450); Red Blood Cells 4.09 10^6/uL (4.0-5.20); Red Cell Distribution Width 14.5 % (11.8-14.3); White Blood Cell 13.6 10^3/uL (4.4-10.8)
[2018-01-24 07:30] VITALS: BP 127/66
[2018-01-24 07:32] LABS: Band Neutrophils % (manual) 0; Basophils % (manual) 0 (0.0-2.0); Blast Cells 0; Metamyelocytes % 0; Myelocytes % 0; Promyelocytes % 0; Reactive Lymphocytes 0
[2018-01-24 07:33] LABS: BUN/Creatinine Ratio 55.6; Potassium 4.7 mmol/L (3.5-5.1)
[2018-01-24 07:54] LABS: Eosinophils % (manual) 1 (0-7); Lymphocytes % (manual) 9 (10.0-50.0); Monocytes % (manual) 9 (0-12)
[2018-01-24] MEDS: INSULIN 70/30 1unit/0.01ml Susp (100units/ml) SC SCH ×2 (09:30→18:42)
[2018-01-24] MEDS: BOOST PLUS 8 ounce PO SCH ×3 (09:30→17:47)
[2018-01-24] MEDS: APIXABAN 5 MG TAB PO SCH ×2 (09:31→22:26)
[2018-01-24] MEDS: predniSONE 20 MG TAB PO SCH (09:32)
[2018-01-24] MEDS: PANTOPRAZOLE 40 MG TAB PO SCH (09:32)
[2018-01-24] MEDS: METHADONE HCL 10 MG TAB PO SCH ×2 (09:32→22:27)
[2018-01-24] MEDS: ASPirin 81 mg TAB PO SCH (09:32)
[2018-01-24] MEDS: NITROGLYCERIN 0.2MG/HR TOPICAL PATCH TD SCH (09:33)
[2018-01-24] MEDS: CARVEDILOL 3.125 MG TAB PO SCH ×2 (09:35→22:27)
[2018-01-24] MEDS: ENOXAPARIN SOD 40 MG/0.4 ML SYRINGE SC SCH (09:35)
[2018-01-24] MEDS: ENALAPRIL MALEATE 10 MG TAB PO SCH (09:35)
[2018-01-24] MEDS: AZITHROMYCIN 500MG/ 250ML 250 ML IV SCH (09:41)
[2018-01-24] MEDS: POTASSIUM CHL 20 Meq TABLET PO SCH (09:42)
[2018-01-24] MEDS ORDERED: FLUCONAZOLE 200MG/100ML 100 ML IV SCH (10:00)
[2018-01-24] MEDS: DIGOXIN 0.125 MG TAB PO SCH (11:15)
[2018-01-24 11:51] VITALS: BP 126/47
[2018-01-24 16:50] VITALS: BP 126/92
[2018-01-24 20:00] VITALS: BP 106/67
[2018-01-24 22:00] VITALS: BP 106/67
[2018-01-25 05:11] VITALS: BP 147/74
[2018-01-25] MEDS: SODIUM CHLOR 0.9% PF (SALINE LOCK) 10ML VIAL IV SCH (05:42)
[2018-01-25] MEDS: InsuLIN REG 1unit/0.01ml Soln (100units/ml) SC SCH ×3 (06:30→17:00)
[2018-01-25] MEDS: ACCU-CHEK COMFORT CURVE STRIP VI SCH ×3 (06:30→17:00)
[2018-01-25] MEDS: HYDROcodone-ACET 5/325MG TAB PO PRN (06:38)
[2018-01-25] MEDS: ALBUTEROL SULF 2.5 MG/0.5ML(0.5%) NEB SOLN NEB SCH ×3 (06:42→14:37)
[2018-01-25] MEDS: IPRATROPIUM BROM 0.5 MG/2.5ML INH SOL NEB SCH ×3 (06:42→14:37)
[2018-01-25] MEDS: BUDESONIDE (INHALATION) 0.5 MG/2 ML NEB NEB SCH (06:43)
[2018-01-25] MEDS: INSULIN 70/30 1unit/0.01ml Susp (100units/ml) SC SCH (08:17)
[2018-01-25] MEDS: BOOST PLUS 8 ounce PO SCH ×2 (08:17→12:13)
[2018-01-25 09:00] VITALS: BP 124/70
[2018-01-25] MEDS: AZITHROMYCIN 500MG/ 250ML 250 ML IV SCH (10:01)
[2018-01-25] MEDS: APIXABAN 5 MG TAB PO SCH (10:02)
[2018-01-25] MEDS: ENOXAPARIN SOD 40 MG/0.4 ML SYRINGE SC SCH (10:02)
[2018-01-25] MEDS: PANTOPRAZOLE 40 MG TAB PO SCH (10:02)
[2018-01-25] MEDS: ASPirin 81 mg TAB PO SCH (10:02)
[2018-01-25] MEDS: predniSONE 20 MG TAB PO SCH (10:02)
[2018-01-25] MEDS: METHADONE HCL 10 MG TAB PO SCH (10:03)
[2018-01-25] MEDS: CARVEDILOL 3.125 MG TAB PO SCH (10:03)
[2018-01-25] MEDS: DIGOXIN 0.125 MG TAB PO SCH (10:03)
[2018-01-25] MEDS: ENALAPRIL MALEATE 10 MG TAB PO SCH (10:04)
[2018-01-25] MEDS: POTASSIUM CHL 20 Meq TABLET PO SCH (10:04)
[2018-01-25] MEDS: NITROGLYCERIN 0.2MG/HR TOPICAL PATCH TD SCH (10:05)
[2018-01-25] MEDS ORDERED: FLUCONAZOLE 200MG/100ML 100 ML IV SCH (13:00)
[2018-01-25 13:03] VITALS: BP 147/66
== END 2018-01-25 17:30 | disposition home health service (06) | DRG 140 ==
LOC: ER 09:38 → TELE 09:39 → TELE-WESTW 01-13 17:47
PROVIDERS: ADMIT Internal Medicine; ATTEND Internal Medicine Pulmonary Disease
DX: J44.0 Chronic obstructive pulmonary disease with (acute) lower respiratory infection (principal); J18.9 Pneumonia, unspecified organism; I50.33 Acute on chronic diastolic (congestive) heart failure; J96.10 Chronic respiratory failure, unspecified whether with hypoxia or hypercapnia; E87.2 Acidosis; E11.65 Type 2 diabetes mellitus with hyperglycemia; I11.0 Hypertensive heart disease with heart failure; I27.81 Cor pulmonale (chronic); L03.115 Cellulitis of right lower limb; J44.1 Chronic obstructive pulmonary disease with (acute) exacerbation; L03.116 Cellulitis of left lower limb; E44.1 Mild protein-calorie malnutrition; E66.01 Morbid (severe) obesity due to excess calories; M71.20 Synovial cyst of popliteal space [Baker], unspecified knee; G89.29 Other chronic pain; I25.10 Atherosclerotic heart disease of native coronary artery without angina pectoris; I48.91 Unspecified atrial fibrillation; J20.9 Acute bronchitis, unspecified; M71.22 Synovial cyst of popliteal space [Baker], left knee; Z79.4 Long term (current) use of insulin; M17.0 Bilateral primary osteoarthritis of knee; T38.0X5A Adverse effect of glucocorticoids and synthetic analogues, initial encounter; Y92.89 Other specified places as the place of occurrence of the external cause; D72.829 Elevated white blood cell count, unspecified; Z79.899 Other long term (current) drug therapy; Z68.41 Body mass index [BMI] 40.0-44.9, adult
CPT/HCPCS: 36415; 36600; 51702; 71045; 80048; 80053; 80061; 81001; 82550; 82805; 82947; 82962; 83036; 83605; 83880; 84443; 84484; 85007; 85025; 85027; 85610; 85652; 85730; 87040; 87070; 87081; 87205; 87804; 93005; 93306; 93970; 94640; 96365; 96366; 96375; 99291; J1450; J1815; J1956; J2543; J3490